=== PATIENT | female | born 1995 | race Caucasian/White ===

== ENCOUNTER 2024-09-17 20:43 | Emergency (ER) | payer OTHER ==
[~2024-09-17] VITALS: Ht 170.2 cm; Wt 74.0 kg
[2024-09-17 21:08] LABS: BASOPHILS 0.6 % (0-2); EOSINOPHILS 1.1 % (0-6); HEMATOCRIT 37.7 % (35.0-50.0); HEMOGLOBIN 12.3 g/dL (12.0-18.0); LYMPHOCYTES 43.6 % (24-44); MCH 26.7 (27-36); MCHC 32.7 g/dl (30-36); MCV 81.6 fl (81-99); MONOCYTES 5.7 % (0-12); PLATELET COUNT 237 K/uL (140-440); RBC 4.62 M/ul (4.3-5.7); RDW 14.6 (10.5-15.0)
[2024-09-17 21:35] LABS: ACETAMINOPHEN 0 ug/mL (10-30); ALBUMIN 3.7 g/dL (3.4-5.0); ALBUMIN/GLOBULIN RATIO 1.12 (1.1-2.4); ALCOHOL, MEDICAL <3 ng/dL (<3); ALKALINE PHOSPHATASE 84 U/L (46-116); ALT (SGPT) 38 U/L (14-59); ANION GAP 11.3 (7-21); AST (SGOT) 11 U/L (15-37); BILIRUBIN, TOTAL 0.3 ng/dL (0.2-1.0); BUN/CREATININE RATIO 32.14 (6.0-28.6); CALCIUM 9.6 mg/dL (8.5-10.1); CARBON DIOXIDE 30 mmol/L (21-32); CHLORIDE 107 mmol/L (98-107); CREATININE, SERUM 0.56 mg/dL (0.55-1.02); GLOMERULAR FILTRATION RATE,EST 127 mL/min (>60); POTASSIUM 4.3 mmol/L (3.5-5.1); SALICYLATE <0.2 mg/dL (2.8-20.0); TSH, 3RD GENERATION <0.007 uIU/mL (0.358-3.740); UREA NITROGEN 18 mg/dL (7-18)
[2024-09-17 21:39] LABS: BILIRUBIN, URINE NEGATIVE (negative); BLOOD/HGB, URINE SMALL (Negative); KETONE, URINE NEGATIVE (Negative); LEUK ESTERASE, URINE NEGATIVE (negative); NITRITE, URINE NEGATIVE (negative)
[2024-09-17 21:45] LABS: EPITHELIAL CELLS, URINE SQUAMOUS 2+ /lpf (0-1+)
[2024-09-17 21:46] LABS: BACTERIA, URINE 1+ /hpf (negative); CASTS, URINE NONE SEEN \\lpf; CRYSTALS, URINE NONE SEEN (0-1+)
[2024-09-17 21:47] LABS: COLLECTION TYPE, URINE CLEAN CATCH; REFLEX CULTURE, URINE No (No)
[2024-09-17 21:54] LABS: AMPHETAMINES, URINE NEGATIVE (NEGATIVE); BARBITURATES, URINE NEGATIVE (NEGATIVE); BENZODIAZEPINE, URINE NEGATIVE (NEGATIVE); BUPRENORPHINE, URINE NEGATIVE (NEGATIVE); CANNABINOID, URINE NEGATIVE (NEGATIVE); COCAINE, URINE NEGATIVE (NEGATIVE); ECSTASY, URINE NEGATIVE (NEGATIVE); FENTANYL, URINE NEGATIVE (NEGATIVE); METHADONE, URINE NEGATIVE (NEGATIVE); OPIATES, URINE NEGATIVE (NEGATIVE); OXYCODONE, URINE NEGATIVE (NEGATIVE); PHENCYCLIDINE, URINE NEGATIVE (NEGATIVE)
[2024-09-17 22:54] VITALS: BP 123/79
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
== END 2024-09-17 22:50 | disposition home or self-care (01) ==
LOC: ED 20:43
PROVIDERS: Emergency Medicine
DX: R45.851 Suicidal ideations (principal); B34.9 Viral infection, unspecified; E05.00 Thyrotoxicosis with diffuse goiter without thyrotoxic crisis or storm; Z88.1 Allergy status to other antibiotic agents
CPT/HCPCS: 36415; 80053; 80307; 81001; 84443; 84703; 85025; 99284; G0480

== ENCOUNTER 2024-10-07 11:35 | Emergency (ER) | payer OTHER ==
[~2024-10-07] VITALS: Ht 170.2 cm; Wt 77.9 kg
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
[2024-10-07 11:59] LABS: BILIRUBIN, URINE NEGATIVE (negative); BLOOD/HGB, URINE MODERATE (Negative); KETONE, URINE NEGATIVE (Negative); LEUK ESTERASE, URINE NEGATIVE (negative); NITRITE, URINE NEGATIVE (negative); PH, URINE 5.5 (5-7)
[2024-10-07 12:07] LABS: BACTERIA, URINE RARE /hpf (negative); CASTS, URINE NONE SEEN \\lpf; COLLECTION TYPE, URINE CLEAN CATCH; CRYSTALS, URINE NONE SEEN (0-1+); EPITHELIAL CELLS, URINE SQUAMOUS 2+ /lpf (0-1+); REFLEX CULTURE, URINE No (No)
[2024-10-07 13:33] LABS: BASOPHILS 0.5 % (0-2); EOSINOPHILS 1.3 % (0-6); HEMATOCRIT 37.6 % (35.0-50.0); HEMOGLOBIN 12.4 g/dL (12.0-18.0); LYMPHOCYTES 36.6 % (24-44); MCH 26.9 (27-36); MCHC 32.9 g/dl (30-36); MCV 81.8 fl (81-99); MONOCYTES 6.8 % (0-12); NEUTROPHILS 54.8 % (39-80); PLATELET COUNT 212 K/uL (140-440); RDW 14.3 (10.5-15.0)
[2024-10-07 14:27] VITALS: BP 129/74
== END 2024-10-07 14:27 | disposition home or self-care (01) ==
LOC: ED 11:35
PROVIDERS: Emergency Medicine
DX: N93.9 Abnormal uterine and vaginal bleeding, unspecified (principal); R10.30 Lower abdominal pain, unspecified; Z88.1 Allergy status to other antibiotic agents
CPT/HCPCS: 36415; 81001; 84703; 85025; 99284

== ENCOUNTER 2025-08-09 14:16 | Emergency (ER) | payer MEDICAID ==
[~2025-08-09] VITALS: Ht 170.2 cm; Wt 73.2 kg
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
[2025-08-09 14:48] LABS: BLOOD/HGB, URINE TRACE-L (Negative); KETONE, URINE SMALL (Negative); LEUK ESTERASE, URINE TRACE (negative); NITRITE, URINE POSITIVE (negative)
[2025-08-09 14:54] LABS: BACTERIA, URINE 2+ /hpf (negative); CRYSTALS, URINE NONE SEEN (0-1+); EPITHELIAL CELLS, URINE SQUAMOUS 3+ /lpf (0-1+)
[2025-08-09 14:55] LABS: CASTS, URINE NONE SEEN \\lpf; REFLEX CULTURE, URINE No (No)
[2025-08-09 15:09] LABS: BASOPHILS 0.1 % (0.1-1.2); EOSINOPHILS 0.4 % (0.7-5.8); LYMPHOCYTES 21.7 % (19.3-51.7); MCH 26.4 PG (25.6-32.2); MCHC 32.2 g/dL (32.2-35.5); MCV 81.8 fL (79.4-94.8); MONOCYTES 5.9 % (4.7-12.5); NEUTROPHILS 71.6 % (34.0-71.1); RBC 4.51 M/uL (3.93-5.22)
[2025-08-09 15:28] LABS: ABO A; RH POSITIVE
[2025-08-09] MEDS ORDERED: METOPROLOL TART50 MG PO (15:36)
[2025-08-09 15:47] LABS: GLOMERULAR FILTRATION RATE,EST 132.0 mL/min (>60); UREA NITROGEN 4.0 mg/dL (7-18)
[2025-08-09] MEDS ORDERED: CEPHALEXIN500 M1 PO (16:13)
[2025-08-09 16:20] VITALS: BP 130/82
[2025-08-09] MEDS ORDERED: METHIMAZOLE10 MG PO (16:27)
== END 2025-08-09 16:20 | disposition home or self-care (01) ==
LOC: ED 14:16
PROVIDERS: Emergency Medicine
DX: O23.42 Unspecified infection of urinary tract in pregnancy, second trimester (principal); N39.0 Urinary tract infection, site not specified; O99.282 Endocrine, nutritional and metabolic diseases complicating pregnancy, second trimester; E05.00 Thyrotoxicosis with diffuse goiter without thyrotoxic crisis or storm; Z3A.15 15 weeks gestation of pregnancy; Z88.1 Allergy status to other antibiotic agents; Z79.899 Other long term (current) drug therapy
CPT/HCPCS: 36415; 80048; 81001; 84702; 85025; 86900; 86901; 99284